=== PATIENT | male | born 1955 | race Caucasian/White ===

== ENCOUNTER 2023-09-20 18:28 | Emergency (ER) | payer OTHER ==
[~2023-09-20 18:28] MED LIST: CLARITIN10 M1 PO; DEPAKOTE250 M1 PO; DICLOFENAC POT.50 MG PO; Ketorolac 30 MG/ML VIAL IM ONE; LIPITOR 10M10 MG/TAB; MAGNESIUM OXID400 M1 PO; MIRTAZAPINE45 M2 PO; Orphenadrine 60 MG/2ML AMP IM ONE; PRILOSEC OTC20 MG PO; PROZAC20 M1 PO; SINGULAIR PO; ZOFRAN ODT4 MG PO
== END 2023-09-20 19:51 | disposition home or self-care (01) ==
LOC: ED 18:28
DX: R51.9 Headache, unspecified (principal)
CPT/HCPCS: J1885; J2360